=== PATIENT | male | born 1985 | race Hispanic/Latino ===

== ENCOUNTER 2023-12-06 07:58 | Day surgery (SDC) | payer MEDICARE, MEDICAID, SELFPAY ==
[2023-12-06] VITALS (13 sets, daily range): BP systolic 108–130; BP diastolic 72–95; PULSE 61–89; RESP 12–23; TEMP 36.1–36.4; O2SAT 99–100
--- NOTE | ~2023-12-06 | CT_ITS ---
EXAMINATION: CT abdomen pelvis w con DATE: 12/06/2023 11:03 INDICATION: Right lower quadrant abdominal pain TECHNIQUE: Computed tomography (CT) of the abdomen and pelvis was performed with 100 mL Omnipaque-350 intravenous contrast. Automated exposure control and iterative reconstruction technique were employe d. The dose-length product was 248.10 mGy-cm. COMPARISON: None FINDINGS: Lung bases are clear. Visualized inferior heart is normal. No pericardial or pleural effusion. Liver, gallbladder, spleen, pancreas, bilateral adrenal glands and left kidney are normal. 6 mm cyst at the lower pole of the right kidney. There is inflammatory stranding surrounding the distal appendix whic h is dilated to up to 9 mm consistent with acute appendicitis. Bowels are otherwise unremarkable with no obstruction. Bladder is normal. Minimal likely reactive free fluid in the deep pelvis. No abscess or free intraperitoneal gas. No pathologically enlarged abdominal or pelvic lymphadenopathy. Mild t horacolumbar levocurvature with minimal spondylosis. Left supra-acetabular bone island. IMPRESSION: 1. Acute appendicitis. Dr. López discussed these findings with Dr. Carbajal at 11:25 AM. Reviewed, dictated and finalized at location B.
--- NOTE | 2023-12-06 09:30 | ED.ABDPAIN ---
HPI - Abdominal Pain General Chief Complaint: Abdominal Pain <Jeni Carbajal PA-C - Last Filed: 12/06/23 18:14> Stated Complaint: rght flank pain <Jeni Carbajal PA-C - Last Filed: 12/06/23 18:14> Time Seen by Provider: 12/06/23 09:31 <Jeni Carbajal PA-C - Last Filed: 12/06/23 18:14> Focused HPI: This is a 38-year-old male that presents to the emergency department for right-sided abdominal pain. Reports ongoing intermittently over the last week. Reports history of kidney stones. Denies fevers, vomiting, dysuria, or hematuria. GENERAL: Well-appearing, well-nourished, and in no acute distress. HEAD: Normocephalic, atraumatic. CHEST: Clear to auscultation. ?No respiratory distress. HEART: Regular rate and rhythm.? NEURO: ?Alert and oriented x3. Patient screened in triage and initial orders placed.? ?Additional care and disposition to be based upon?diagnostic testing and treatment. <Jeni Carbajal PA-C - Last Filed: 12/06/23 18:14> Source: patient <Jeni Carbajal PA-C - Last Filed: 12/06/23 18:14> Mode of arrival: ambulatory <Jeni Carbajal PA-C - Last Filed: 12/06/23 18:14> Limitations: no limitations <Jeni Carbajal PA-C - Last Filed: 12/06/23 18:14> History of Present Illness HPI narrative: Breathe HPI. Symptoms began 2 weeks ago and lasted for 3 days then went away until last night. Pain is worse with physical movements. No nausea or vomiting. No diarrhea or constipation. No history of kidney stones. Denies urinary symptoms. Has not had anything to eat since yesterday afternoon. <Joao Lo MD - Last Filed: 12/06/23 13:04> Related Data Allergies/Adverse Reactions: Allergies Allergy/AdvReac Type Severity Reaction Status Date / Time Penicillins Allergy Hives Verified 12/06/23 08:04 <Jeni Carbajal PA-C - Last Filed: 12/06/23 18:14> Review of Systems Review of Systems: All systems reviewed & are unremarkable except as noted in HPI and below <Joao Lo MD - Last Filed: 12/06/23 13:04> Constitutional: Constitutional: Reports no additional constitutional complaints <Joao Lo MD - Last Filed: 12/06/23 13:04> ENT: Reports system reviewed and no additional complaints, except as documented <Joao Lo MD - Last Filed: 12/06/23 13:04> Cardiovascular: Cardiovascular: Reports no additional cardiovascular complaints <Joao Lo MD - Last Filed: 12/06/23 13:04> Respiratory: Respiratory: Reports no additional respiratory complaints <Joao Lo MD - Last Filed: 12/06/23 13:04> Gastrointestinal: Gastrointestinal: Reports abdominal pain, Denies constipation, Denies nausea and Denies vomiting <Joao Lo MD - Last Filed: 12/06/23 13:04> [facility] Past Medical History Medical History: Medical History Healthy adult male <Jeni Carbajal PA-C - Last Filed: 12/06/23 18:14> Surgical History Surgical History: Surgical History No history of previous surgery <Jeni Carbajal PA-C - Last Filed: 12/06/23 18:14> Exam Narrative: GENERAL: Well-appearing, well-nourished, and in no acute distress. HEAD: Normocephalic, atraumatic. ENT: Mucous membranes moist. NECK: Supple. CHEST: Clear to auscultation. No respiratory distress. HEART: Regular rate and rhythm. Normal peripheral pulses. ABDOMEN: Soft, tender palpation right lower quadrant with guarding, nondistended. EXTREMITIES: Normal range of motion. No edema. SKIN: Warm, dry, no rash. NEURO: Alert and oriented x3. PSYCH: Normal mood and affect. <Joao Lo MD - Last Filed: 12/06/23 13:04> Course Course Emergency Course: Informed of results. Discussed with Dr. Martinez, will go to OR. Ceftriaxone and flagyl for abx coverage. <Joao Lo MD - Last Filed: 12/06/23 13:04> Vital Signs Vital signs:
[2023-12-06 10:12] LABS: Basophils Percent Auto 0.4 % (0.2-1.2); Eosinophils Percent Auto 0.3 % (0-4.4); Hematocrit 42.5 % (42.0-52.0); Hemoglobin 13.7 g/dL (14.0-18.0); Immature Granulocyte Absolute 0.04 K/mm3 (0.00-0.031); Immature Granulocyte Percent A 0.4 % (0-0.5); Lymphocytes Absolute Auto 1.75 K/mm3 (0.9-3.2); Lymphocytes Percent Auto 17.7 % (18.3-44.2); Mean Corpuscular HGB Conc 32.2 g/dl (32-36); Mean Corpuscular Hemoglobin 27.1 pg (26-34); Mean Platelet Volume 11.8 fl (7.4-10.4); Monocytes Absolute Auto 0.4 K/mm3 (0.1-0.6); Monocytes Percent Auto 3.6 % (2.6-8.5); Neutrophils Absolute Auto 7.7 K/mm3 (1.3-6.7); Neutrophils Percent Auto 77.6 % (45.5-73.1); Platelet Count Result 247 k/mm3 (150-375); Red Blood Count 5.06 M/mm3 (4.6-6.20); Red Cell Distribution Width 14.2 % (11.5-14.5); White Blood Count 9.9 K/mm3 (4.5-10.0)
[2023-12-06 10:14] LABS: Add Urine Microscopic? NO; Appearance Urine Clear (Clear); Bilirubin Urine Negative (Negative); Blood Urine Negative (Negative); Color Urine Yellow (Yellow); Glucose Urine UA Negative (Negative); Ketones Urine Negative (Negative); Leukocyte Esterase Ur Negative LEU/UL (Negative); Nitrate Urine Negative (Negative); Protein Urine Negative (Negative); Specific Grav Ur 1.022 (1.001-1.035)
[2023-12-06 10:21] LABS: Alanine Aminotransferase 70 U/L (6-50); Albumin Level 4.9 g/dL (3.5-5.1); Alkaline Phosphatase 133 U/L (38-126); Anion Gap 12 mmol/L (4-12); Aspartate Amino Transferase 50 U/L (17-59); Bilirubin,Total 0.5 mg/dL (0.2-1.3); Blood Urea Nitrogen 14 mg/dL (9-20); Calcium 9.2 mg/dL (8.4-10.2); Carbon Dioxide 26 mmol/L (22-30); Chloride 101 mmol/L (98-107); Estimated CRCL calculation 93 ml/min; Estimated Glomerular Filt Rate > 60; Glucose 112 mg/dL (65-110); Lipase 97 U/L (23-300); Potassium 3.9 mmol/L (3.4-5.0); Sodium 139 mmol/L (137-145)
[2023-12-06] MEDS: MORPHINE SULFATE (*CRX) 4 MG/ML INJ IV PUSH (11:14)
[2023-12-06] MEDS: ONDANSETRON INJ 4 MG/2 ML VIAL IV PUSH (11:14)
[2023-12-06] MEDS: metroNIDAZOLE 500 MG/ISO 100ML 500 MG/100 ML BAG 100 MG IVPB (11:40)
[2023-12-06] MEDS: LACTATED RINGERS 1,000 ML 30 ML IV CONT ×3 (15:00→16:56)
--- NOTE | 2023-12-06 15:42 | WPDANESEPPF ---
Anes - Initial Pre Proc Eval Procedure: Operation Date: 12/06/23 17:00 Proposed Procedures p Laparoscopic Appendectomy, Possible Open - Kelechi Martinez MD Date/Time: 12/06/23 15:42 Surgeon: Kelechi Martinez MD Pre Op Diagnosis: rght flank pain Patient Data Age: 38 Gender: M Height: 1.7 m Weight: 69.05 kg Last Vital Signs Temp 36.1 C L 12/06/23 14:55 Pulse 61 12/06/23 14:55 Resp 18 12/06/23 14:55 BP 125/81 12/06/23 14:55 Pulse Ox 100 12/06/23 14:55 O2 Del Method Room Air 12/06/23 14:55 Allergies Allergy/AdvReac Type Severity Reaction Status Date / Time Penicillins Allergy Hives Verified 12/06/23 08:04 Laboratory Tests 12/06/23 10:06 WBC 9.9 K/mm3 (4.5-10.0) RBC 5.06 M/mm3 (4.6-6.20) Hgb 13.7 L g/dL (14.0-18.0) Hct 42.5 % (42.0-52.0) MCV 84.0 fl (80-100) MCH 27.1 pg (26-34) MCHC 32.2 g/dl (32-36) RDW 14.2 % (11.5-14.5) Plt Count 247 k/mm3 (150-375) MPV 11.8 H fl (7.4-10.4) Immature Gran % (Auto) 0.4 % (0-0.5) Neut % (Auto) 77.6 H % (45.5-73.1) Lymph % (Auto) 17.7 L % (18.3-44.2) [place] % (Auto) 3.6 % (2.6-8.5) Eos % (Auto) 0.3 % (0-4.4) Baso % (Auto) 0.4 % (0.2-1.2) Lymph # (Auto) 1.75 K/mm3 (0.9-3.2) [place] # (Auto) 0.4 K/mm3 (0.1-0.6) Eos # (Auto) 0.0 K/mm3 (0-0.3) Baso # (Auto) 0.0 K/mm3 (0.0-0.1) Abs Immat Gran (auto) 0.04 H K/mm3 (0.00-0.031) Absolute Neuts (auto) 7.7 H K/mm3 (1.3-6.7) Absolute Nucleated RBC 0.000 K/mm3 (0.0-0.012) Nucleated RBC % 0.0 % (0.0-0.2) Sodium 139 mmol/L (137-145) Potassium 3.9 mmol/L (3.4-5.0) Chloride 101 mmol/L (98-107) Carbon Dioxide 26 mmol/L (22-30) Anion Gap 12 mmol/L (4-12) BUN 14 mg/dL (9-20) Creatinine 0.90 mg/dL (0.7-1.3) Estim Creat Clear Calc 93 ml/min Estimated GFR > 60 (59 - ) Glucose 112 H mg/dL (65-110) Calcium 9.2 mg/dL (8.4-10.2) Total Bilirubin 0.5 mg/dL (0.2-1.3) AST 50 U/L (17-59) ALT 70 H U/L (6-50) Alkaline Phosphatase 133 H U/L (38-126) Total Protein 9.0 H g/dL (6.3-8.2) Albumin 4.9 g/dL (3.5-5.1) Lipase 97 U/L (23-300) Urine Color Yellow (Yellow) Urine Appearance Clear (Clear) Urine pH 6.0 (5.0-9.0) Ur Specific [place] 1.022 (1.001-1.035) Urine Protein Negative mg/dL (Negative) Urine Glucose (UA) Negative mg/dL (Negative) Urine Ketones Negative mg/dL (Negative) Ur Blood (Man) Negative (Negative) Urine Nitrate Negative (Negative) Urine Bilirubin Negative (Negative) Urine Urobilinogen 1.0 mg/dL (<2.0) Leukocyte Esterase Rfl Negative THOMAS/UL (Negative) Patient hx anesthesia problems: none Family hx anesthesia problems: none Results Review: All pre-operative results and documents have been reviewed as part of the pre-operative evaluation. [facility] Past Medical History Medical History (Updated 12/06/23 @ 13:04 by Joao Lo MD) Healthy adult male Surgical History Surgical History (Updated 12/06/23 @ 12:13 by Joao Lo MD) No history of previous surgery Anes - Eval Final PreProcedure Day of Procedure 12/06/23 15:42 Patient weight: normal Heart: regular rate and rhythm Lungs: clear to auscultation Airway: Mallampati scale class II Neurological: alert and oriented Last oral intake: >/= 8 hours ASA classification: II Emergent: yes Anesthetic plan: proceed Anesthesia type and monitoring: general ETT and standard monitoring Results Review: All pre-operative results and documents have been reviewed as part of the pre-operative evaluation. Informed Consent: The patient's anesthetic plan and its attendant risks and benefits were discussed with the patient/family/POA. Questions were solicited and answers provided to the satisfaction of the patient/family/POA.
--- NOTE | 2023-12-06 15:57 | WPDHPUPDATE1 ---
History and Physical Update Update Date/Time: 12/06/23 15:57 History and Physical has been reviewed, including an updated exam of the patient. There are NO changes in the patient's condition. Risks, benefits, and alternatives have been discussed and questions answered. Patient agrees to proceed with procedure.
--- NOTE | 2023-12-06 15:58 | PM.SD2 ---
Same Day Admit/Disch: HPI History of Present Illness Chief complaint: Acute appendicitis Narrative: Zaheer Post is a 38 year old male who has had some right flank pain for couple of weeks. In the last 3 days this pain has localized to the right lower quadrant and become much more severe. He came to the emergency room and was noted to have exquisite tenderness in the right lower quadrant. His white blood cell count was at the upper limit of normal at 9900. He had a CT scan of the abdomen and pelvis which showed a 9 mm appendix with periappendiceal stranding consistent with acute appendicitis. There was no evidence of an abscess or ruptured appendix. After discussion, the patient is taken to surgery now for laparoscopic appendectomy. [facility] Past Medical History Medical History Healthy adult male Surgical History Surgical History No history of previous surgery Same Day Admit/Disch: Med Pre-admit Medications Home Medications Medication Instructions Recorded Confirmed Type ibuprofen 600 mg tablet 600 mg PO Q6H PRN pain #14 tabs 12/06/23 Rx oxycodone-acetaminophen 5 mg-325 0.5 - 1 tablet PO Q6H PRN pain #10 12/06/23 Rx mg tablet tabs Review of Systems Review of Systems All systems reviewed & are unremarkable except as noted in HPI and below (HPI and those items noted below) Constitutional Constitutional: Denies chills and Denies fever(s) Cardiovascular Cardiovascular: Denies chest pain, Denies diaphoresis, Denies dyspnea and Denies paroxysmal nocturnal dyspnea Respiratory Respiratory: Denies chest congestion, Denies cough and Denies dyspnea Integumentary/Breasts Skin/Breast: Denies lesions and Denies rash Exam Const: General: comfortable, no acute distress, alert and awake HENMT: Head: normocephalic and atraumatic Mouth: Yes Normal oral and palatal mucosa present Eyes: Conjunctivae: conjunctivae normal Pupils: Equal, round and reactive pupils present EOM: EOMs intact bilaterally Neck: Neck: normal visual inspection, no lymphadenopathy and nontender Resp: Effort & Inspection: normal respiratory effort Auscultation: clear to auscultation bilaterally Cardio: Rate: regular rate Rhythm: regular rhythm Heart sounds: no gallops, no murmurs and no rubs GI: Inspection: non-distended, scaphoid and no scars GI Palp: Yes Soft to palpation, Yes Tenderness to palpation present (GI) (Right lower quadrant fullness with exquisite tenderness and some guarding), Yes Guarding due to palpation present (GI), No Hepatomegaly present and No Splenomegaly present Auscultation: normal bowel sounds Skin: Lesions: no lesions Rashes: no rashes Neuro: General: no focal motor deficits and CN's II-XI intact bilaterally Cranial nerves: Yes Equal, round and reactive pupils present, Yes Bilaterally intact EOM present, Yes facial symmetry and Yes Midline tongue present Speech: normal speech Motor exam (neuro): 5/5 motor strength present throughout and Motor abnormalities not present Extrem: General: no clubbing, cyanosis or edema and edema Psych: Affect: normal affect Thought process: Normal thought process present Insight: Good insight present (Psych) DS: Data Data Completed and Pending Labs on day of discharge: Labs from last 24 hours 12/06/23 10:06 WBC 9.9 RBC 5.06 Hgb 13.7 L Hct 42.5 MCV 84.0 MCH 27.1 MCHC 32.2 RDW 14.2 Plt Count 247 MPV 11.8 H Immature Gran % (Auto) 0.4 Neut % (Auto) 77.6 H Lymph % (Auto) 17.7 L [place] % (Auto) 3.6 Eos % (Auto) 0.3 Baso % (Auto) 0.4 Lymph # (Auto) 1.75 [place] # (Auto) 0.4 Eos # (Auto) 0.0 Baso # (Auto) 0.0 Abs Immat Gran (auto) 0.04 H Absolute Neuts (auto) 7.7 H Absolute Nucleated RBC 0.000 Nucleated RBC % 0.0 Sodium 139 Potassium 3.9 Chloride 101 Carbon Dioxide 26 Anion Gap 12 BUN 14 Creatinine 0.90 Estim Creat Clear Calc 93
[2023-12-06] MEDS: BUPIVACAINE/EPINEPHRINE 0.5% 50 ML VIAL 20 ML INFILTRATE (16:29)
[2023-12-06] MEDS: fentaNYL CITRATE INJ (*CRX) 100 MCG/2 ML VIAL 25 MCG IV PUSH ×6 (17:18→17:28)
--- NOTE | 2023-12-06 17:35 | P.OP_ITS ---
Procedure Note - Detailed Date of Procedure 12/06/23 Pre-op Diagnosis Acute appendicitis Post-op Diagnosis Same Procedure Performed Laparoscopic appendectomy Surgeon Kelechi Martinez MD Data Processing Control Clerk JOSE ANTONIO Young. Anesthesia General and Local Indications Patient came to the emergency room with history of right flank and lower quadrant abdominal pain. He had tenderness with guarding in this area. His white blood cell count was 9900. He had a CT scan which showed acute appendicitis. He is taken to surgery now for laparoscopic appendectomy. Findings Acute non perforated appendicitis Description of Procedure Patient was taken to surgery and induced into general anesthesia. The abdomen is prepped and draped. Trocars were placed in the usual fashion using Utan optical trocars and a 5 mm camera. Patient was placed in Trendelenburg with the right-side elevated. We found the appendix fairly easily. Appendix was exceptionally long and was adherent to the lateral abdominal sidewall. After some dissection we were able to divide the mesentery and mobilized the distal appendix. I then elevated the distal appendix and continued the dissection of the mesentery. The appendiceal artery was thoroughly cauterized and divided. The base of the appendix was skeletonized. A Vicryl endoloop was then used to ligate the base of the appendix. The appendix was amputated just above the ligature. The mucosa of the appendiceal stump was cauterized. The appendix was placed immediately in an Endo-Catch bag and retrieved through the 10 11 left lower quadrant trocar site. We replaced the trocar reviewed the areas of dissection as well as the appendiceal stump. All looked good with no evidence of bleeding or other problem. We then evacuated CO2 and removed the trocar sleeves. Skin wounds were closed with subcuticular 4-0 Monocryl skin suture. Wounds were dressed with Exofin surgical adhesive. Patient was awakened and taken to recovery in good condition. Sponge needle counts were correct x2. Estimated Blood Loss -5 Drains No Packing No Pathology Yes (Appendix) Complications None Condition Stable Disposition PACU [facility] Billing Surgery - Charge Forward: Surgery Billing (Laparoscopic appendectomy)
[2023-12-06] MEDS: oxyCODONE HCL (*CRX) 5 MG TAB IR PO (17:58)
== END 2023-12-06 18:28 | disposition home or self-care (01) ==
LOC: ANHED 12:49 → ANHSURGERY 12:53
PROVIDERS: Physician Assistant; Emergency Provider Emergency Medicine; Visit Provider Surgery
PROC: 0DTJ4ZZ Resection of Appendix, Percutaneous Endoscopic Approach (ICD-10-PCS; CPT 44970; principal; 2023-12-06 17:00)
DX: K35.30 Acute appendicitis with localized peritonitis, without perforation or gangrene (principal); K36 Other appendicitis
CPT/HCPCS: 44970; 36415; 74177; 80053; 81003; 83690; 85025; 88304; 96365; 96367; 96375; 99285; A9270; J0330; J0696; J1100; J1836; J2270; J2405; J2704; J3010; J7030; J7120; Q9967

== ENCOUNTER 2023-12-28 12:14 | Emergency (ER) | payer MEDICARE, MEDICAID, SELFPAY ==
--- NOTE | ~2023-12-28 | XR_ITS ---
Right Hand Technique: PA, oblique, and lateral views were obtained. Clinical History: Fourth digit pain Findings: No acute fracture or dislocation is seen. Osseous alignment is anatomic. Joint spaces are p reserved. Soft tissues are unremarkable. Impression: Unremarkable right hand. Reviewed, dictated and finalized at location . Impression: Unremarkable right hand.
[2023-12-28 12:18] VITALS: BP 129/91; PULSE 71; RESP 16; TEMP 36.4; O2SAT 100
[2023-12-28] MEDS: ACETAMINOPHEN 500 MG TABLET 1000 MG PO (13:16)
[2023-12-28] MEDS: TETANUS,DIPHTHERIA,AC PERTUSSIS ADULT (0.5 ML) BOOSTRIX IM (13:17)
--- NOTE | 2023-12-28 14:03 | ED.UPPEXIN ---
HPI - Extremity Injury (Upper) General Chief Complaint: Extremity Injury, Upper Stated Complaint: right ring finger caught in car door Time Seen by Provider: 12/28/23 12:45 Source: patient Mode of arrival: ambulatory Limitations: no limitations History of Present Illness HPI narrative: This is a 38-year-old male, with no significant past medical history, presents emergency department after slamming his right finger in a car door. He is not sure when he last had a tetanus vaccination. He complains of 5/10 distal finger pain. He has no other complaints at this time. Related Data Home Medications Medication Instructions Recorded Confirmed No Home Medications 12/17/23 12/17/23 Allergies Allergy/AdvReac Type Severity Reaction Status Date / Time Penicillins Allergy Hives Verified 12/28/23 12:17 Review of Systems Review of Systems: All systems reviewed & are unremarkable except as noted in HPI and below PMFSH Past Medical History Medical History Healthy adult male Surgical History Surgical History History of laparoscopic appendectomy 12/06/23 Dr. Martinez Social History Social History (Updated 12/17/23 @ 10:45 by Estephanie Arreaga CMA) Smoking status: Never smoker Alcohol intake: current Exam Narrative: GENERAL: Well-developed, well-nourished, and in no acute distress. HEAD: Normocephalic, atraumatic. EYES: PERRLA and EOMI. CHEST: Clear to auscultation. No respiratory distress. No wheezes rales or rhonchi HEART: Regular rate and rhythm. No murmur heard. Normal peripheral pulses. EXTREMITIES: The distal right 4th finger appears mildly erythematous and ecchymotic. There is a small area of some bone hematoma at the medial aspect of the nail with some bleeding. There is no noted laceration. Somewhat diminished range of motion at the distal phalanx with otherwise normal range of motion. No edema. SKIN: Warm, dry, no rash. NEURO: Alert and oriented x3. No focal deficit. Moving all 4 limbs spontaneously PSYCH: Normal mood and affect. Course Course Emergency Course: 14:03 - X-ray of the hand not concerning for fracture or dislocation. Exam is consistent with a subungual hematoma though has a means of bleeding. The patient was given a tetanus vaccination. Will discharge with splint for protection and recommendation for primary care follow-up. I discussed the findings and recommendations with the patient. Discussed return and emergency precautions including signs/symptoms of wound infection and neurovascular compromise. The patient voiced understanding and agreement with the plan. All questions answered to his satisfaction. Vital Signs Vital signs: Vital Signs Temperature 97.5 F L 12/28/23 12:18 Pulse Rate 71 12/28/23 12:18 Respiratory Rate 16 12/28/23 12:18 Blood Pressure 129/91 H 12/28/23 12:18 Pulse Oximetry 100 12/28/23 12:18 Oxygen Delivery Room Air 12/28/23 12:18 Temperature 97.5 F L 12/28/23 12:18 Pulse Rate 71 12/28/23 12:18 Respiratory Rate 16 12/28/23 12:18 Blood Pressure 129/91 H 12/28/23 12:18 Pulse Oximetry 100 12/28/23 12:18 Oxygen Delivery Room Air 12/28/23 12:18 MDM - Extremity Injury (Upper) MDM Narrative Medical decision making narrative: Plan: Imaging, pain control, tetanus vaccination, reassess Differential Diagnosis Differential diagnosis: Likely other (Tuft fracture, fracture, cervical hematoma, contusion, other) Discharge Plan Discharge Clinical Impression: Finger pain Qualifiers: Laterality: right Qualified Code(s): M79.644 - Pain in right finger(s) Subungual hematoma of finger of right hand Qualifiers: Encounter type: initial encounter Qualified Code(s): S60.10XA - Contusion of unspecified finger with damage to nail, initial encounter Patient Disposition: Home, Self-Care Condition: Stable Instruc
[2023-12-28 14:15] VITALS: BP 119/79; PULSE 65; RESP 14; TEMP 36.4; O2SAT 100
== END 2023-12-28 14:17 | disposition home or self-care (01) ==
PROVIDERS: Emergency Provider Preventive Medicine Aerospace Medicine; PCP Student in an Organized Health Care Education/Training Program
DX: S60.141A Contusion of right ring finger with damage to nail, initial encounter (principal); Z23 Encounter for immunization; W23.0XXA Caught, crushed, jammed, or pinched between moving objects, initial encounter
CPT/HCPCS: 73130; 90471; 90715; 99283; A9270

== ENCOUNTER 2024-11-19 11:22 | Outpatient (CLI) | payer MEDICARE, MEDICAID, SELFPAY ==
--- NOTE | ~2024-11-19 | US_ITS ---
US scrotum doppler INDICATION: Right testicular pain TECHNIQUE: Testicular sonogram utilizing grayscale and color Doppler FINDINGS: The testes are normal in size and appearance. No focal lesions are seen. The right testes measures 4.2 x 2.2 x 2.7 cm centimeters, and the left testis measures 4.7 x 2 x 2.7 cm cm. There is normal vascular flow to both testes. The right and left epididymides appear normal. There is no varicocele or hydrocele. IMPRESSION: 1. NORMAL TESTICULAR ULTRASOUND. Reviewed, dictated and finalized at location O.
== END 2024-11-19 11:23 | disposition home or self-care (01) ==
PROVIDERS: PCP Family Medicine; Visit Provider Family Medicine
DX: N50.811 Right testicular pain (principal)
CPT/HCPCS: 76870; 93976

== ENCOUNTER 2025-01-19 10:03 | Emergency (ER) | payer MEDICARE, MEDICAID, SELFPAY ==
--- OUTSIDE RECORDS SUMMARY | 2023-07-03 09:30 | XMS_ITS | Continuity of Care Document ---
Author Organization [facility] Address [address] [facility] [address] [place] [address] Phone Care Team Providers Care Service Writer Advisor Name Role Phone Kiara Fontana Unavailable Unavailable Allergies, Adverse Reactions, Alerts Substance Reaction Status Criticality Penicillins Active No Information WARNIN allergy(ies) could not be collected because the type is not supported. Please contact the source practice for further details. Medications Medication Instructions Dosage Effective Dates (start - stop) Status Comments paroxetine 20 mg tablet take 1 tablet by oral route every day 20 MG - Active hydroxyzine HCl 50 mg tablet take 1 tablet by oral route 2 times every day as needed for anxiety 50 MG - Active ibuprofen 200 mg tablet take 1 tablet by oral route every 6 hours as needed with food 200 MG - Active Bactrim DS 800 mg-160 mg tablet take 1 tablet by oral route every 12 hours 1.00 tablet - No Longer Active Procedures Procedure Date OFFICE VISIT/EST LEVEL III DIAST BP 80-89 MM HG SYST BP < 130 MM HG RVW MEDS BY RX/DR IN RD MED LIST DOCD IN RD TOBACCO NON-USER PHQ2 Negative Substance Abuse Screening AMNT PAIN NOTED PAIN PRSNT URINE CULTURE Offsite URINALYSIS/auto W/O micro (EXMPT) [facility] Meet& Greet May-03-202 3 HIV 1 ANTIGEN W/HIV 1&2 ANTIBODIES Offsi te Lab HEPATITIS C ANTIBODY Offsite Lab 2022 OFFICE VISIT/EST LEVEL IV OFFICE VISIT/EST LEVEL III Medication Reviewed PHQ2 Negative Substance Abuse Screening OFFICE VISIT/EST LEVEL III LDL-C 100-129 MG/DL Medication Reviewed TOBACCO NON-USER PHQ2 Negative Substance Abuse Screening URINE DIP Onsite NON AUTO W/0 MICRO EKG INTERPRET.&READING EKG,TRACING CBC W/DIFF. METABOLIC PANEL: CHEM 19 LIPID PANEL TSH Annual Well Visit PPPS Subsequent Visit OFFICE VISIT/EST LEVEL II Annual Well Visit PPPS Subsequent Visit Medication Reviewed IMMUNIZATION ADM/SNGL TDAP (7+ Yrs) (3) (C) OFFICE VISIT/EST LEVEL III CBC W/DIFF. METABOLIC PANEL: CHEM 19 TSH T-4 FREE Annual Well Visit PPPS Subsequent Visit CBC W/DIFF. METABOLIC PANEL: CHEM 19 LIPID PANEL T-4 FREE TSH VDRL HIV 1 ANTIGEN W/HIV 1&2 ANTIBODIES HEPATITIS PANEL:A,B,C Annual Well Visit PPPS Subsequent Visit OFFICE VISIT/EST LEVEL II OFFICE VISIT/EST LEVEL III OFFICE VISIT/EST LEVEL IV DRUG SCREEN/URINE (OFFSITE) OFFICE VISIT/EST LEVEL IV OFFICE VISIT/EST LEVEL IV OFFICE VISIT/EST LEVEL II OFFICE VISIT/EST LEVEL III CHLAMYDIA/DNA PROBE GGDNA HIV-1 ANTIBODY VDRL URINE DIP OFFICE VISIT/EST LEVEL IV Results Test Name Date and Time Measure Units Reference Range Abnormal Flag Status Comments Panel Description: Urine Culture, Routine Final Urine Culture, Routine 4 21:01:00 Final report Final Performed by:Tati Velez (RADHA) Result 1 4 21:01:00 No growth Final Performed by:Tati Velez (RADHA) Advance Directives Directive Yes / No Effective Date File Name No Information Encounters Encounter Description Practice Location Reason(s) For Visit Diagnoses Date Provider Providers Copied on Encounter OFFICE VISIT/EST LEVEL III [facility], [address] [facility] [address], [place], [place], [id number], tel:[phone] [facility] testicle pain (chief complaint) Right testicular painBody mass index (BMI) 22.0-22.9, adult Apr- 4 Amandeep Craig. [address] [facility] , [address], [place], [place], [id number], [place]. tel:[phone] Referring Provider: Kiara BRADY, [address] [place] [address] [address], [place], [address] . tel:[phone] [facility], [address] [facility] [address], [place], [place], [id number], [place] tel:[phone] [facility] Depression, unspecified depression type 3 Maureen Castle. [address] [facility] [address], [place], [place], [id number], [place]. tel:[phone] [facility], [address], [place], [place], [address], [place] tel:[phone] [facility] No Information 3 Heber Raymundo. [address] [facility] , [address], [place], [address], [place]. tel:[phone] [facility], [address] [facility] [address], [place], [place], [address], [place] tel:[phone] [facility] No Information Apr-2 3 Heebr Raymundo. [address] [facility] , [address], [place], [address], [place]. tel:[phone] [facility], [address] [facility] [address], [place], [place], [address], [place] tel:[phone] [facility] No Information Jun- 3 Heber Raymundo. [address] [facility] , [address], [place], [address], [place]. tel:[phone] OFFICE VISIT/EST LEVEL IV [facility], [address] [facility] [address], [place], [place], [id number], [place] tel:[phone] [facility] white tongue (chief complaint)f oul breath (chief complaint) Dietary counseling and surveillanceH alitosisSense of smell alteredPost-C OVID syndromeEncou nter for screening for other viral diseasesObses sive behaviorBody mass index (BMI) 23.0-23.9, adult Jun- 3 Heber Raymundo. [address] [facility] , [address], [place], [address], [place]. tel:[phone] OFFICE VISIT/EST LEVEL III [facility], [address] [facility] [address], [place], [place], [address], [place] tel:[phone] [facility] white tongue (chief complaint) Dietary counseling and surveillanceO ral leukoplakiaBo dy mass index (BMI) 26.0-26.9, adult 3 Tiana Virgen. [address] [facility] [address], [place], [place], [address], [place]. tel:[phone] OFFICE VISIT/EST LEVEL III [facility], [address] [facility] [address], [place], [place], [address], [place] tel:[phone] [facility] right side pain 2 weeks (chief complaint) Dietary counseling and surveillanceR ight sided abdominal painBody mass index (BMI) 25.0-25.9, adultSpinal stenosis, lumbar region without neurogenic gina 1 Amandeep Craig. [address] [facility] , [address], [place], [place], [address], . tel:[phone] Referring Provider: Kiara BRADY, [address] [facility] [address], [place], [address] . tel:[phone] OFFICE VISIT/EST LEVEL II [facility], [address] [facility] [address], [place], [place], [address], [place] tel:[phone] [facility] Medicare preventive (chief complaint)F ollow Up of back pain (chief complaint)c hest pain (chief complaint)d izziness (chief complaint) Encntr for general adult medical exam w/o abnormal findingsDieta ry counseling and surveillanceC hest pain, unspecified typeOrthostas isSpinal stenosis of lumbar region without neurogenic claudication 0 Heber Raymundo. [address] [facility] , [address], [place], [address], [place]. tel:[phone] Referring Provider: Zackary Buck MD, [address] [place] [address] [address], [place], [address]. tel:[phone] [facility], [address] [facility] [address], [place], [address], [place] tel:[phone] [facility] Medicare preventive (chief complaint)F ollow Up of back pain (chief complaint)F ollow Up of allergies (chief complaint) Dietary counseling and surveillanceM edicare annual wellness visit, subsequentSpi nal stenosis, lumbar region without neurogenic claudicationB ida mass index (BMI) 26.0-26.9, adult 9 Heber Raymundo. [address] [facility] , [address], [place], [address], [place]. tel:[phone] OFFICE VISIT/EST LEVEL III [facility], [address] [facility] [address], [place], [place], [address], [place] tel:[phone] [facility] other (chief complaint)F ollow Up of asthma (chief complaint) Dermatofibrom aAllergic rhinitis, unspecified allergic rhinitis trigger, unspecified rhinitis seasonality 6 Heber Raymundo. [address] [facility] [address] [facility] [address], [address], [place], [place], [facility], [place]. tel:[phone] [facility], [address] [facility] [address], [place], [place], [address], tel:[phone] [facility] physical (chief complaint)o ther (chief complaint) No Information 5 Nikhil Higgins. [address], [address], [place], [facility], [place]. tel:[phone] [facility], [address] [facility] [address], [place], [place], [address], tel:[phone] [facility] tongue numbness (chief complaint) No Information 3 Marvel Wright. [address] [facility] [address], [address], [place], [facility], [place]. tel:[phone] OFFICE VISIT/EST LEVEL II [facility], [address] [facility] [address], [place], [place], [address], [place] tel:[phone] [facility] Skin lesion (chief complaint) No Information 3 No Information OFFICE VISIT/EST LEVEL III [facility], [address] [facility] [address], [place], [place], [address], [place] tel:[phone] [facility] back pain (chief complaint) No Information 2 No Information OFFICE VISIT/EST LEVEL IV [facility], [address] [facility] [address], [place], [place], [address], [place] tel:[phone] [facility] check up (chief complaint)a sthma (chief complaint)b ack pain (chief complaint) No Information 1 Heber Raymundo. [address] [facility] [address] [facility] [address], [address], [place], [facility], [place]. tel:[phone] OFFICE VISIT/EST LEVEL IV [facility], [address] [facility] [address], [place], [place], [address], tel:[phone] [facility] back pain (chief complaint)a sthma (chief complaint) No Information Nov-0 0 Heber Raymundo. [address] [facility] [address] [facility] [address], [address], [place], [address], [place]. tel:[phone] [facility], [address], [place], [place], [address], tel:[phone] [facility] No Information 0 No Information OFFICE VISIT/EST LEVEL IV [facility], [address], [place], [place], [address], tel:[phone] [facility] No Information 0 No Information OFFICE VISIT/EST LEVEL II [facility], [address] [facility] [address], [place], [place], [address], tel:[phone] [facility] No Information Jun-1 5-200 9 No Information OFFICE VISIT/EST LEVEL III [facility], [address] [facility] [address], [place], [place], [address], tel:[phone] [facility] No Information Apr-0 8-200 9 No Information [facility], [address] [place] [address] [address], [place], [place], [address], tel:[phone] [facility] No Information Apr-0 8-200 9 No Information OFFICE VISIT/EST LEVEL IV [facility], [address] [facility] [address], [place], [place], [address], tel:[phone] [facility] No Information Feb-0 5-200 9 No Information Family History Family Member Type Diagnosis Age At Onset Sister Problem (finding) asthma Mother Problem (finding) raised blood lipids Mother Problem (finding) coronary arterioscleros is Mother Problem (finding) hypertension Sister Problem (finding) migraine Father Problem (finding) Alive and well Mother Problem (finding) raised blood lipids Sister Problem (finding) Allergies Mother Problem (finding) hypertension Mother Problem (finding) Alive and well Immunizations Vaccine Date Status Comments Tdap (Adacel) administered Note: vis ; So urce: New Immunization Record Payers Payer name Insurance type Covered republican ID Authorsheila zavaleta(s) [facility] Medicare Dual PPS CI [id number] [employer]IC[employer] PRIMARY [id number] 99 Care [facility] NGS PPS MB [id number] [employer] MEDICARE PRIMARY [id number] Social History Type Description Quantity Date Captured Comments Alcohol Use Details No Caffeine Use Details No Tobacco Use Status Never smoked tobacco 2023 Smoking Status Never smoker Non-Smoking Tobacco Use Details : No Details Available : No Details Available Sex Male Sexual Orientation Straight or heterosexual Gender Identity Male Vital Signs Date / Time: Height Weight BMI Pulse Rate Blood Pressure Temperature Respiratory Rate Body Surface Area Head Circumference Head Circ. Percentile Wt./Jose. Percentile BMI percentile Pulse Ox Inhaled Ox 2:38 PM 67.00 in 66.043 kg (145.60 lbs) 22.8 0 kg/m eter (2) 72 /min 126/84 mm[Hg] 98.10 F 18 /min 1.77 meter(2) 98 % Chief Complaint And Reason For Visit From encounter dated '07/03/2023 14:30'. testicle pain (chief complaint) Reason For Referral Reason For Referral No Information Plan Of Treatment Date Type Action Status Goal HCV due Goal Annual Wellness Exam. Due on due Goal Colonoscopy. Due on 024 due Goal Lipid panel. Due on 027 due Goal HIV Screen due Goal Tdap. Due on due Goal H&P. Due on due Goal Pain Screening. Due on due Goal HIV Screen due Goal H&P. Due on due Goal HCV due Goal Colonoscopy. Due on due Goal Tdap. Due on due Goal Lipid panel. Due on due Goal Colonoscopy. Due on due Goal Lipid panel. Due on due Goal Tdap. Due on due Goal HIV Screen due Goal HCV due Goal H&P. Due on due Goal H&P. Due on due Goal Colonoscopy. Due on due Goal Lipid panel. Due on due Goal HIV Screen due Goal Tdap. Due on due Goal Lifestyle education regardin g diet completed Goal Lipid panel. Due on due Goal H&P. Due on due Goal HCV. Due on due Goal HIV Screen due Goal Colonoscopy. Due on due Goal Tdap. Due on due Goal Lifestyle education regardin g diet completed Goal Tdap. Due on due Goal Influenza vaccine. Due on due Goal Lipid panel. Due on due Goal HIV Screen. Due on due Goal Lifestyle education regardin g diet completed Goal HIV Screen. Due on 20 due Goal Lipid panel. Due on 018 due Goal Tdap. Due on due Goal Influenza vaccine. Due on due Goal Dietary management education , guidance, and counseling completed Goal HIV Screen. Due on 19 due Goal Tdap. Due on due Goal Influenza vaccine. Due on due Goal Dietary management education , guidance, and counseling completed Referral Referred To: Popeye Andrade [address] [facility] [address] [place], [phone] Ordered: Referrals: Popeye Andrade. Evaluate and treat ordered History Of Present Illness Encounter Date Complaint History Of Prese nt Illness Comments: Pt wit h pain to right testicle for the last week or so. Feels like it may be improving with time. Denies any swelling or redness. No dysuria or penile discharge. Denies any injury. Pt with recent kidney stone. Denies any abdominal pain. testicle pain foul breath white tongue noted 3 months a go. Was scraping. Not changed. Seen in March. Given antifungal mouth rinse. Not changed.Feels has bad breath, but family members say is normalHe stopped eating due to feeling bad about his breath. Lost weight.Seen dentist. Did cleaning. Told him nothing is wrong.He had COVID in 2021. Did lose smell initiallyAlso has history of being obsessed with other sensation in past. This is worst he ever had. Read online that if you lick yourself, smell will get better. So now he licks his arm constantlyFeels significant emotional distress since this started white tongue 2 months back no ticed that the tongue is white and it also smells. no pain . no lymphadenopathy. otherwise well. has tried scrapping tongue and tried Listerine, but no help right side pain 2 we eks (comments) C/o right flank pain for the last 2 weeks. Area is tender. Has tried to pass gas without any relief. Worse with movement. Bracing area seems to help. Addi surgeries on abdomen. Last BM 1 hr [employer]. Denies trouble urinating. right side pain 2 weeks chest pain The patient pres ents with a complaint of chest pain. The symptoms began 2 years ago. The problem occurs intermittently. It generally lasts 5 seconds. The pain is in the left ribs. The patient describes the pain as sharp. The patient denies dyspnea, fatigue, nausea, palpitations and vomiting. Relevant history for this patient excludes tobacco use. The symptoms are aggravated by motion. The patient had a response to rest. The patient denies any abdominal pain, headache or weight gain. Additional information: seeming to come more frequently. Follow Up of back pain Location of pain is lower back. The patient describes the pain as an ache and sharp. Additional information: been having more bad days recently. Is taking ibuprofen as needed. Tries to self cope. Medicare preventive Cognitive St atus: Normal cognition (Cognitive status has not changed) on 12/11/2019. The ''Up and Go'' test took less than 30 seconds and the patient does not need help with activities of daily living. The patient is not at risk for falls. The patient has not fallen in the last year. The fall(s) did not result in injury. Patient's activity level is sedentary. The patient has smoke detectors in the home. Patient reports using a seatbelt in vehicles. Patient reports a none diet. Patient denies recent weight gain. Patient denies recent weight loss. Relevant history is negative for tobacco use and alcohol use. dizziness It occurs interm ittently. The patient describes it as (an) light-headed. Symptom is aggravated by rapid movement and rapid rise. Relieving factors include rest. Associated symptoms include chest pain. Pertinent negatives include fever, headache, nausea, otalgia, palpitations and vomiting. Additional information: noted times. Will have him get fluids and lie down. Medicare preventive The patient has not felt depressed and has had interest and pleasure doing things recently. Cognitive Status: Normal cognition on 10/21/2018. The ''Up and Go'' test took less than 30 seconds and the patient does not need help with activities of daily living. The patient is at risk for falls. The patient has not fallen in the last year. The fall(s) did not result in injury. Patient's activity level is sedentary. The patient has smoke detectors in the home. Patient reports using a seatbelt in vehicles. spinal stenosis Patient reports a none diet. Patient denies recent weight gain. Patient denies recent weight loss. Relevant history is negative for tobacco use, alcohol use. Follow Up of allergies The patie nt denies cough, ear pain, headache, nasal drainage and nausea. Additional information: takes OTC. Not have issues with asthma now. Follow Up of back pain Location of pain is lower back.The patient describes the pain as an ache. Pertinent negatives include abdominal pain, diarrhea, numbness, weakness and weight loss. Additional information: stopped going to pain management. Does ibuprofen OTC. Follow Up of asthma The initial visit date was 12/02/2009. Associated symptoms include dry cough. Pertinent negatives include wheezing. Additional information: been out of medications. Not come to doctor. Off meds. Rare wheezing. Does cough every day. Minimal head symptoms. other The symptoms beg an 2 months ago. pt states he has a lump on right thigh. states that it has gotten bigger. Does not hurt but is hard and sometimes the skin around it itches. No redness. Feels dry physical Needs a physical form filled out for foster parenting other [id number]-[id number] bm/week-normal for himhemorrhoid-sometimes painful, always itchy bm-lump at anus a couple weeks ago-gone nowasthma-chronic dry cough-using albuterol 2x/day with little help, no other asthma medsback fopr-pucscbs-quer refill for percocet for bad days-rare use Functional Status Date Functional Assessmen t Pain Score 2/10 Instructions Date Instruction Additional Infor osman ? epididymitis. Low suspicion for torsion. Will treat with bactrim. 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 miralax. f/u if no improvement. Related to Right sided abdominal pain Lifestyle education regarding di et Related to Dietary counseling and surveillance Giving encouragement to exercise Related to Dietary counseling and surveillance Pain is worsening, b ut not noticing increased neurologic changes. Discussed options. He does not want addicting medication. Discussed options of doing CBD or medical marijuana. Encourage to do his stretching Related to Spinal stenosis of lumbar region without neurogenic claudication normal ECG. Likely i s muscular from his spinal stenosis. Watch for now Related to Chest pain, unspecified type Check labs. Increase fluids Rela rodney to Orthostasis maintain healthy diet and exerci se Related to Encntr for general adult medical exam w/o abnormal findings Dietary management e ducation, guidance, and counseling Related to Dietary counseling and surveillance Giving encouragement to exercise Related to Dietary counseling and surveillance paperwork filled out , no concerns being in household of fostering child Related to Medicare annual wellness visit, subsequent Giving encouragement to exercise Related to Dietary counseling and surveillance Dietary management e ducation, guidance, and counseling Related to Dietary counseling and surveillance maintain healthy diet and exerci se Related to Medicare annual wellness visit, subsequent discussed is benign finding. Nothing needs to be done. Watch for now. Consider excision if increases in size or discomfort Related to Dermatofibroma Singulair refilled. No signs of asthma, can stop inhalers Related to Allergic rhinitis, unspecified allergic rhinitis trigger, unspecified rhinitis seasonality percocetoarrs checked-no activit y Related to Back pain colace Related to Const ipation symbicortsingulair Related to As thma labs today x lipid-n ot covered by medicare Related to Routine general medical examination at a health care facility use albuterol as nee ded with a target of less than 2 times a week Related to Asthma observation of lymph node x 1 mo nth Related to Enlarged lymph node call if lymph node e nlarges, becomes tender, or other assoc. symptoms Related to Enlarged lymph node call for any concerns or problem s Related to Enlarged lymph node call for increase in size of lipoma, pain, or other problems Related to Abdominal lipoma call if increases in size or becomes painful Related to Ganglion cyst Assessments Type Assessment Date assessment Right testicular pain assessment Body mass index (BMI) 22.0-22.9, adult Mental Status Date Cognitive Assessment Orientation - [place] ed to time, place, person, situation. Patient Care Teams Name Effective Dates (start - stop) Status Members No Information
--- OUTSIDE RECORDS SUMMARY | 2023-07-03 09:30 | XMS_ITS | Continuity of Care Document ---
Author Organization [facility] Address [address] [facility] [address] [place] [address] Phone Care Team Providers Care Taker Off Drying Kiln Name Role Phone Kiara Fontana Unavailable Unavailable [...] Copied on Encounter OFFICE VISIT/EST LEVEL III [facility], [address] [facility] [address], [place], [place], [id number], tel:[phone] [facility] testicle pain (chief complaint) Right testicular painBody mass index (BMI) 22.0-22.9, adult Apr- 4 Amandeep Craig. [address] [facility] , [address], [place], [place], [id number], [place]. tel:[phone] Referring Provider: Kiara BRADY, [address] [place] [address] [address], [place], [address] . tel:[phone] [facility], [address] [facility] [address], [place], [place], [id number], [place] tel:[phone] [facility] Depression, unspecified depression type [address] [facility] [address], [place], [place], [id number], [place]. tel:[phone] [facility], [address], [place], [place], [address], [place] tel:[phone] [facility] No Information 3 Hbeer Raymundo. [address] [facility] , [address], [place], [address], [place]. tel:[phone] [facility], [address] [facility] [address], [place], [place], [address], [place] tel:[phone] [facility] No Information Apr-2 3 Heber Raymundo. [address] [facility] , [address], [place], [address], [place]. tel:[phone] [facility], [address] [facility] [address], [place], [place], [id number], [place] tel:[phone] [facility] No Information Jun- 3 Heber Raymundo. [address] [facility] , [address], [place], [address], [place]. tel:[phone] OFFICE VISIT/EST LEVEL IV [facility], [address] [facility] [address], [place], [place], [id number], [place] tel:[phone] [facility] white tongue (chief complaint)f oul breath (chief complaint) Dietary counseling and surveillanceH alitosisSense of smell alteredPost-C OVID syndromeEncou nter for screening for other viral diseasesObses sive behaviorBody mass index (BMI) 23.0-23.9, adult Jun- 3 Heber Raymundo. [address] [facility] , [address], [place], [address], [place]. tel:[phone] OFFICE VISIT/EST LEVEL III [facility], [address] [facility] [address], [place], [place], [address], [place] tel:[phone] [facility] white tongue (chief complaint) Dietary counseling and surveillanceO ral leukoplakiaBo dy mass index (BMI) 26.0-26.9, adult 3 Tiana Virgen. [address] [facility] [address], [place], [place], [id number], [place]. tel:[phone] OFFICE VISIT/EST LEVEL III [facility], [address] [facility] [address], [place], [place], [address], [place] tel:[phone] [facility] right side pain 2 weeks (chief complaint) Dietary counseling and surveillanceR ight sided abdominal painBody mass index (BMI) 25.0-25.9, adultSpinal stenosis, lumbar region without neurogenic gina 1 Amandeep Craig. [address] [facility] , [address], [place], [place], [address], . tel:[phone] Referring Provider: Kiara BRADY, [address] [facility] [address], [place], [address] . tel:[phone] OFFICE VISIT/EST LEVEL II [facility], [address] [facility] [address], [place], [place], [address], [place] tel:[phone] [facility] Medicare preventive (chief complaint)F ollow Up of back pain (chief complaint)c hest pain (chief complaint)d izziness (chief complaint) Encntr for general adult medical exam w/o abnormal findingsDieta ry counseling and surveillanceC hest pain, unspecified typeOrthostas isSpinal stenosis of lumbar region without neurogenic claudication 0 Heber Raymundo. [address] [facility] , [address], [place], [address], [place]. tel:[phone] Referring Provider: Zackary Buck MD, [address] [place] [address] [address], [place], [address]. tel:[phone] [facility], [address] [facility] [address], [place], [address], [place] tel:[phone] [facility] Medicare preventive (chief complaint)F ollow Up of back pain (chief complaint)F ollow Up of allergies (chief complaint) Dietary counseling and surveillanceM edicare annual wellness visit, subsequentSpi nal stenosis, lumbar region without neurogenic claudicationB ida mass index (BMI) 26.0-26.9, adult 9 Heber Raymundo. [address] [facility] , [address], [place], [address], [place]. tel:[phone] OFFICE VISIT/EST LEVEL III [facility], [address] [facility] [address], [place], [place], [address], [place] tel:[phone] [facility] other (chief complaint)F ollow Up of asthma (chief complaint) Dermatofibrom aAllergic rhinitis, unspecified allergic rhinitis trigger, unspecified rhinitis seasonality 6 Heber Raymundo. [address] [facility] [address], [address], [place], [place], [facility], [place]. tel:[phone] [facility], [address] [facility] [address], [place], [place], [address], tel:[phone] [facility] physical (chief complaint)o ther (chief complaint) No Information 5 Nikhil Higgins. [address] [facility] [address], [address], [place], [place], [facility], [place]. tel:[phone] [facility], [address] [facility] [address], [place], [place], [address], tel:[phone] [facility] tongue numbness (chief complaint) No Information 3 Marvel Wright. [address] [facility] [address], [address], [place], [facility], [place]. tel:[phone] OFFICE VISIT/EST LEVEL II [facility], [address] [facility] [address], [place], [place], [address], [place] tel:[phone] [facility] Skin lesion (chief complaint) No Information 3 No Information OFFICE VISIT/EST LEVEL III [facility], [address] [facility] [address], [place], [place], [address], [place] tel:[phone] [facility] back pain (chief complaint) No Information 2 No Information OFFICE VISIT/EST LEVEL IV [facility], [address] [facility] [address], [place], [place], [address], [place] tel:[phone] [facility] check up (chief complaint)a sthma (chief complaint)b ack pain (chief complaint) No Information 1 Heber Raymundo. [address] [facility] [address], [address], [place], [facility], [place]. tel:[phone] OFFICE VISIT/EST LEVEL IV [facility], [address] [facility] [address], [place], [place], [address], tel:[phone] [facility] back pain (chief complaint)a sthma (chief complaint) No Information Nov-0 0 Heber Raymundo. [address] [facility] [address], [address], [place], [address], [place]. tel:[phone] [facility], [address], [place], [place], [address], tel:[phone] [facility] No Information 0 No Information OFFICE VISIT/EST LEVEL IV [facility], [address], [place], [place], [address], tel:[phone] [facility] No Information 0 No Information OFFICE VISIT/EST LEVEL II [facility], [address] [facility] [address], [place], [place], [address], tel:[phone] [facility] No Information Jun-1 5-200 9 No Information OFFICE VISIT/EST LEVEL III [facility], [address] [facility] [address], [place], [place], [address], tel:[phone] [facility] No Information Apr-0 8-200 9 No Information [facility], [address] [place] [address] [address], [place], [place], [address], tel:[phone] [facility] No Information Apr-0 8-200 9 No Information OFFICE VISIT/EST LEVEL IV [facility], [address] [facility] [address], [place], [place], [address], tel:[phone] [facility] No Information Feb-0 5-200 9 No Information Family History Family Member Type Diagnosis Age At Onset Sister Problem (finding) asthma Mother Problem (finding) raised blood lipids Sister Problem (finding) migraine Sister Problem (finding) Allergies Mother Problem (finding) hypertension Mother Problem (finding) coronary arterioscleros is Mother Problem (finding) hypertension Father Problem (finding) Alive and well Mother Problem (finding) raised blood lipids Mother Problem (finding) Alive and well Immunizations Vaccine Date Status Comments Tdap (Adacel) administered Note: vis ; So urce: New Immunization Record Payers Payer name Insurance type Covered green party ID Authorsheila zavaleta(s) [facility] Medicare Dual PPS CI [id number] [employer]IC[employer] PRIMARY [id number] 99 Care [facility] NGS PPS MB [id number] [employer] MEDIC[employer] PRIMARY [id number] Social History Type Description Quantity Date [...] counseling completed Referral Referred To: Popeye Andrade [address] [facility] [address] [place], [phone] Ordered: Referrals: Popeye Andrade. Evaluate and treat [...] stone. Denies any abdominal pain. testicle pain white tongue noted 3 months a go. [...] constantlyFeels significant emotional distress since this started foul breath white tongue 2 months back no ticed that the tongue is white and it also smells. no pain . no lymphadenopathy. otherwise well. has tried scrapping tongue and tried Listerine, but no help right side pain 2 weeks right side pain 2 we eks (comments) C/o right flank pain for the last 2 weeks. Area is tender. Has tried to pass gas without any relief. Worse with movement. Bracing area seems to help. Addi surgeries on abdomen. 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 Denies trouble urinating. Follow Up of back pain Location of [...] have him get fluids and lie down. chest pain The patient pres ents with [...] Additional information: seeming to come more frequently. Medicare preventive The patient has not felt [...] going to pain management. Does ibuprofen OTC. other The symptoms beg an 2 months ago. pt states he has a lump on right thigh. states that it has gotten bigger. Does not hurt but is hard and sometimes the skin around it itches. No redness. Feels dry Follow Up of asthma The initial visit date was 12/02/2009. Associated symptoms include dry cough. Pertinent negatives include wheezing. Additional information: been out of medications. Not come to doctor. Off meds. Rare wheezing. Does cough every day. Minimal head symptoms. other [id number] bm/week-normal for himhemorrhoid-sometimes painful, always itchy bm-lump at anus a couple weeks ago-gone nowasthma-chronic dry cough-using albuterol 2x/day with little help, no other asthma medsback [id number] refill for percocet for bad days-rare use physical Needs a physical form filled out for foster parenting Functional Status Date Functional Assessmen t Pain [...] improvement. Related to Right sided abdominal pain Giving encouragement to exercise Related to Dietary counseling and surveillance Lifestyle education regarding di et Related to Dietary counseling and surveillance Pain [...] Related to Medicare annual wellness visit, subsequent Singulair refilled. No signs of asthma, can stop inhalers Related to Allergic rhinitis, unspecified allergic rhinitis trigger, unspecified rhinitis seasonality discussed is benign finding. Nothing needs to be done. Watch for now. Consider excision if increases in size or discomfort Related to Dermatofibroma percocetoarrs checked-no activit y Related to Back pain symbicortsingulair Related to As thma labs today x lipid-n ot covered by medicare Related to Routine general medical examination at a health care facility colace Related to Const ipation use albuterol as nee ded with a [...] Mental Status Date Cognitive Assessment Orientation - [place] ed to time, place, person, situation. Patient Care Teams Name Effective Dates (start - stop) Status Members No Information
[2025-01-19] VITALS (7 sets, daily range): BP systolic 118–120; BP diastolic 72–82; PULSE 79–85; RESP 16; TEMP 36.6–36.7; O2SAT 98–100
--- NOTE | ~2025-01-19 | CT_ITS ---
EXAMINATION: CT abdomen pelvis w con DATE: 01/19/2025 11:19 INDICATION: Right lower quadrant abdominal pain. TECHNIQUE: Computed tomography (CT) of the abdomen and pelvis was performed with 100 mL Omnipaque 350 intravenous contrast. Automated exposure control and iterative reconstruction technique were employed. The dose-length product was 257.05 mGy-cm. COMPARISON: CT abdomen and pelvis 12/06/2023 FINDINGS: The visualized portions of the lung bases are clear without pneumonia or pleural effusion. The heart size is normal. No pericardial effusion. The liver, gallbladder, spleen, pancreas, adrenal glands, and left kidney are normal. There is a 5 mm cyst in right kidney. The bladder is distended. There are changes of appendectomy. There are no pathologically enlarged lymph nodes. There is no free intraperitoneal fluid. There are chronic bilateral L5 pars defects. There is 3 mm anterolisthesis of L5 on S1. There is mild thoracic and lumbar spondylosis. IMPRESSION: 1. No etiology for the patient's symptoms. Reviewed, dictated and finalized at location E.
[2025-01-19 10:36] LABS: Hematocrit 45.9 % (42.0-52.0); Hemoglobin 14.7 g/dL (14.0-18.0); Immature Granulocyte Percent A 0.4 % (0-0.5); Lymphocytes Absolute Auto 1.31 K/mm3 (0.9-3.2); Mean Corpuscular HGB Conc 32.0 g/dl (32-36); Mean Corpuscular Hemoglobin 26.9 pg (26-34); Mean Corpuscular Volume 84.1 fl (80-100); Nucleated Red Blood Cells Absolute Auto 0.000 K/mm3 (0.0-0.012); Nucleated Red Blood Cells Perc 0.0 % (0.0-0.2); Platelet Count Result 244 k/mm3 (150-375); Red Blood Count 5.46 M/mm3 (4.6-6.20); White Blood Count 4.7 K/mm3 (4.5-10.0)
[2025-01-19 10:43] LABS: Add Urine Microscopic? NO; Appearance Urine Clear (Clear); Glucose Urine UA Negative (Negative); Leukocyte Esterase Ur Negative LEU/UL (Negative); Nitrate Urine Negative (Negative); Specific Grav Ur 1.003 (1.001-1.035)
[2025-01-19 10:50] LABS: Alanine Aminotransferase 59 U/L (6-50); Albumin Level 5.3 g/dL (3.5-5.1); Alkaline Phosphatase 127 U/L (38-126); Anion Gap 13 mmol/L (4-12); Aspartate Amino Transferase 46 U/L (17-59); Bilirubin,Total 0.6 mg/dL (0.2-1.3); Blood Urea Nitrogen 12 mg/dL (9-20); Calcium 9.6 mg/dL (8.4-10.2); Carbon Dioxide 25 mmol/L (22-30); Chloride 102 mmol/L (98-107); Estimated CRCL calculation 93 ml/min; Estimated Glomerular Filt Rate > 60; Glucose 111 mg/dL (65-110); Lipase 128 U/L (23-300); Potassium 4.1 mmol/L (3.4-5.0); Sodium 140 mmol/L (137-145); Total Protein 9.2 g/dL (6.3-8.2)
[2025-01-19] MEDS: SODIUM CHLORIDE 0.9% IV 500 ML 999 ML IV CONT (10:50)
[2025-01-19] MEDS: ONDANSETRON INJ 4 MG/2 ML VIAL IV PUSH (10:50)
--- NOTE | 2025-01-19 10:50 | ED_ITS ---
HPI - Abdominal Pain General Chief Complaint: Abdominal Pain Stated Complaint: right lower abd pain Time Seen by Provider: 01/19/25 10:09 Source: patient Mode of arrival: ambulatory Limitations: no limitations History of Present Illness HPI narrative: This is a very pleasant 39-year-old male patient with no known past medical history that is currently treated with medications, and who has history of prior appendectomy who presents to the emergency room independently ambulatory accompanied by his mother with complaints of having right lower quadrant pain that was present upon awakening this morning. Patient endorses that upon wakening he had a sharp pain in the right lower quadrant that did not radiate and was not associated with any nausea/vomiting/urinary symptoms of burning, urgency, frequency or hematuria. He has not been able to identify anything that makes the pain worse or better. His initial intensity was an 8 it is now out of 3. Patient has no other acute complaints of chest pain/dyspnea or any acute injuries. He did have 1 episode of diarrhea this morning. No melanotic appearing stool or hematochezia. Related Data Allergies Allergy/AdvReac Type Severity Reaction Status Date / Time Penicillins Allergy Hives Verified 01/19/25 10:13 Review of Systems 2 Review of Systems: All systems reviewed & are unremarkable except as noted in HPI and below PMFSH Past Medical History Medical History Healthy adult male Surgical History Surgical History History of laparoscopic appendectomy 12/06/23 Dr. Martinez Social History Social History Smoking status: Never smoker Alcohol intake: current Exam 2 Const: General: healthy appearing, no acute distress and alert Nutritional Appearance: well nourished Orientation/consciousness: patient oriented x3 Limitations: no limitations HENMT: Head: normal to inspection Face/Nose/Sinus: Normal external nose present and Normal nares present Mouth: Yes Normal oral and palatal mucosa present Throat: posterior oropharynx normal Eyes: Conjunctivae: conjunctivae normal Neck: Neck: normal visual inspection, no lymphadenopathy and no meningeal signs Other: No JVD Chest: Other: Nontender to palpation Resp: Effort & Inspection: normal respiratory effort Auscultation: clear to auscultation bilaterally Cardio: Rate: regular rate Rhythm: regular rhythm Heart sounds: no murmurs GI: GI Palp: Yes Soft to palpation, Yes Tenderness to palpation present (GI) (Right lower quadrant), No Guarding due to palpation present (GI), No Rigid due to palpation, No Hernia present, No Palpable mass present and No Rebound tenderness present Back/Spine/Pelvis: Back: no CVA tenderness Skin: General skin exam: normal color Rashes: no rashes Wounds: no wounds Neuro: Other: Grossly intact and nonfocal Extrem: General: normal to inspection and no clubbing, cyanosis or edema O ther: Feeling equally moving all extremities well without deficit Psych: Mental Status: mental status grossly normal Affect: normal affect Course Course Emergency Course: Differential diagnoses including but not limited to: Acute abdomen, diverticulitis, enteritis, urinary tract infection, ureterolithiasis Patient's vital signs are reviewed and are normal Workup initiated with labs and imaging. Patient medicated for pain. All workup including labs and imaging are unremarkable for cause of patient's symptoms. He is now pain-free. Discussed the findings with the patient at the bedside and he is comfortable with discharge home at this time with prescription for Bentyl for abdominal cramping. Patient advised to watch for any new symptoms and return to the emergency room should he have any acute worsening or follow up with primary care provider. Discharge at this time stable condition. Vital Signs Vital signs: Vital Signs Temperature 98.1 F 01/19/25 10:08 Pulse Rate 79 01/19/25 10:08 Respiratory Rate 16 01/19/25 10:08 Blood Pressure 118/82 01/19/25 10:08 Pulse Oximetry 99 01/19/25 10:08 Oxygen Delivery Room Air 01/19/25 10:08 Temperature 98.1 F 01/19/25 10:08 Pulse Rate 79 01/19/25 10:08 Respiratory Rate 16 01/19/25 10:08 Blood Pressure 118/82 01/19/25 10:12 Pulse Oximetry 100 01/19/25 10:45 Oxygen Delivery Room Air 01/19/25 10:08 MDM - Abdominal Pain MDM Narrative Medical decision making narrative: See ED course Lab Data 01/19/25 10:25 01/19/25 10:25 Labs: Lab Results 01/19/25 Range/Units 10:25 WBC 4.7 (4.5-10.0) K/mm3 RBC 5.46 (4.6-6.20) M/mm3 Hgb 14.7 (14.0-18.0) g/dL Hct 45.9 (42.0-52.0) % MCV 84.1 (80-100) fl MCH 26.9 (26-34) pg MCHC 32.0 (32-36) g/dl RDW 13.7 (11.5-14.5) % Plt Count 244 (150-375) k/mm3 MPV 11.6 H (7.4-10.4) fl Immature Gran % (Auto) 0.4 (0-0.5) % Neut % (Auto) 63.7 (45.5-73.1) % Lymph % (Auto) 27.8 (18.3-44.2) % Cross % (Auto) 5.7 (2.6-8.5) % Eos % (Auto) 1.3 (0-4.4) % Baso % (Auto) 1.1 (0.2-1.2) % Lymph # (Auto) 1.31 (0.9-3.2) K/mm3 Cross # (Auto) 0.3 (0.1-0.6) K/mm3 Eos # (Auto) 0.1 (0-0.3) K/mm3 Baso # (Auto) 0.1 (0.0-0.1) K/mm3 Abs Immat Gran (auto) 0.02 (0.00-0.031) K/mm3 Absolute Neuts (auto) 3.0 (1.3-6.7) K/mm3 Absolute Nucleated RBC 0.000 (0.0-0.012) K/mm3 Nucleated RBC % 0.0 (0.0-0.2) % Sodium 140 (137-145) mmol/L Potassium 4.1 (3.4-5.0) mmol/L Chloride 102 (98-107) mmol/L Carbon Dioxide 25 (22-30) mmol/L Anion Gap 13 H (4-12) mmol/L BUN 12 (9-20) mg/dL Creatinine 0.89 (0.7-1.3) mg/dL Estim Creat Clear Calc 93 ml/min Estimated GFR > 60 (59 - ) Glucose 111 H (65-110) mg/dL Calcium 9.6 (8.4-10.2) mg/dL Total Bilirubin 0.6 (0.2-1.3) mg/dL AST 46 (17-59) U/L ALT 59 H (6-50) U/L Alkaline Phosphatase 127 H (38-126) U/L Total Protein 9.2 H (6.3-8.2) g/dL Albumin 5.3 H (3.5-5.1) g/dL Lipase 128 (23-300) U/L Urine Color Yellow (Yellow) Urine Appearance Clear (Clear) Urine pH 6.5 (5.0-9.0) Ur Specific [place] 1.003 (1.001-1.035) Urine Protein Negative (Negative) mg/dL Urine Glucose (UA) Negative (Negative) mg/dL Urine Ketones Negative (Negative) mg/dL Ur Blood (Man) Negative (Negative) Urine Nitrate Negative (Negative) Urine Bilirubin Negative (Negative) Urine Urobilinogen 0.2 (<2.0) mg/dL Leukocyte Esterase Rfl Negative (Negative) THOMAS/UL Imaging Data Radiologist's impression: ITS Impressions Abdomen/Pelvis CT 01/19/25 11:24 IMPRESSION: 1. No etiology for the patient's symptoms. Discharge Plan Discharge Clinical Impression: Abdominal pain Patient Disposition: Home Condition: Stable Instructions: Abdominal Pain (ED) Additional Instructions: Thank you for allowing us to evaluate you in the emergency room today. Your workup consisted of labs and imaging which are unremarkable. You are stable for discharge home at this time. Review prescribed medication to help with abdominal pain. Please take it as ordered. For the next several days please eat only bland foods and nothing hot, spicy or fried. Follow up with primary care provider within 1 week if any new or worsening symptoms return to the emergency room. Patient Language: Indonesian Prescriptions: New dicyclomine 10 mg capsule 10 mg PO QID PRN (Reason: abdominal pain) Qty: 30 0RF Follow-up/Referrals: Karan,Stanislaw Lind MD [Primary Care Provider, Unknown] - 1 Week Time of Disposition: 11:53
[2025-01-19] MEDS: MORPHINE SULFATE (*CRX) 4 MG/ML INJ IV PUSH (10:51)
--- OUTSIDE RECORDS SUMMARY | 2025-01-19 11:18 | XMS_ITS | Clinical Summary ---
Author Organization [place] [id number] [facility] Address [address] [place] [address] Care Team Providers Care Through Operator Name Role Phone Stanislaw Russo MD Primary Care Provi prem Allergies Active Allergy Reactions Criticality Noted Date Comments Penicillin Rash Medium 10/01/2024 Medications risperiDONE (RisperDAL) 0.5 mg tablet Take 1 tablet (0.5 mg total) by mouth nightly at bedtime. 09/23/2024 Active loratadine (CLARITIN) 10 mg tablet Take 1 tablet (10 mg total) by mouth daily Active Active Problems Problem Noted Date Diagnosed Date Routine adult health maintenance 11/12/2024 Assessment & Plan (11/12/2024 2:18 PM CDT): He is up-to-date on age-appropriate routine health maintenance. All questions answered. Vitals look great. Plan check up again in a year. I did recommend that we do a screening lipid panel for his age and he will get that done at [facility]. Follow up based on findings. Generalized anxiety disorder 11/12/2024 Assessment & Plan (11/12/2024 2:18 PM CDT): Testicular pain, right 11/12/2024 Assessment & Plan (11/12/2024 2:18 PM CDT): Orders: US Scrotum; Future Major depression, recurrent 07/22/2022 Mixed obsessional thoughts and acts 07/22/2022 Depression 07/21/2022 Resolved Problems Problem Noted Date Diagnosed Date Resolved Date Acute appendicitis 11/12/2024 Finger pain 11/12/2024 11/12/2024 Subungual hematoma of finger of right hand 11/12/2024 11/12/2024 Encounters Date Type Department Care Team Description 11/20/2024 Results Follow-Up [facility] Primary Care at [address] [address] Stanislaw Russo MD US Scrotum W Complete Doppler (C) 11/12/2024 2:00 PM CDT Office Visit [facility] Primary Care at [address] [address] Stanislaw Russo MD Routine adult health maintenance (Primary Dx); Generalized anxiety disorder; Testicular pain, right; Screening for hyperlipidemia from Last 3 Months Immunizations Immunization Administration Dates Next Due Influenza, Unspecified 01/03/2024(Deferred: Yoli ent Refused) Tdap 12/28/2023,05/20/2017 Social History Tobacco Use Types Packs/Day Years Used Date Smoking Tobacco: Never Passive Smoke Exposure: Never Smokeless Tobacco: Never Tobacco Cessation:Counseling Given: Not Answered PHQ-2 Answer Date Recorded PHQ-2 Total Score (If total score is 3 or more points, staff should administer the PHQ-9) 0 11/12/2024 PHQ-9 Answer Date Recorded PHQ-9 Total Score 0 11/12/2024 Sex and Gender Information Value Date Recorded Sex Assigned at Not on file Legal Sex Male 10:51 AM CDT Gender Identity Not on file Sexual Orientation Not on file Obstetrics History Last Filed Vital Signs Vital Sign Reading Time Taken Comments Blood Pressure 110/72 11/12/2024 1:53 PM CDT Pulse 80 11/12/2024 1:53 PM CDT Temperature 36.3 C (97.4 F) 11/12/2024 1:53 PM CDT Respiratory Rate 18 11/12/2024 1:53 PM CDT Oxygen Saturation 98% 11/12/2024 1:53 PM CDT Inhaled Oxygen Concentration - - Weight 66 kg (145 lb 8 oz) 11/12/2024 1:53 PM CD T Height 170.2 cm (5' 7.01) 11/12/2024 1:53 PM CD T Body Mass Index 22.78 11/12/2024 1:53 PM CDT Plan of Treatment Health Maintenance Due Date Last Done Comments Varicella Vaccines (1 of 2 - 13+ 2-dose series) 2000 HPV Vaccines (1 - 3-dose SCDM series) 2014 Influenza Vaccine (#1) 2024 Depression Screening 11/12/2025 11/12/2024, 11/12/2024 Regular Well Visit/Exam 18-64 11/12/2025 11/12/2024, 11/12/2024 DTaP/Tdap/Td Vaccine (3 - Td or Tdap) 12/27/2033 12/28/2023, 05/20/2017 Hepatitis B Screening Discontinued Hepatitis C Screening Discontinued Pneumococcal vaccine <65 Aged Out No longer eligible based on patient's age to complete this topic Procedures Procedure Name Priority Date/Time Associated Diagnosis Comments US SCROTUM W COMPLETE DOPPLER (C) Schedule Routine, Read Routine (OP Routine) 11/19/2024 from Last 3 Months Results * US Scrotum W Complete Doppler (C) (11/19/2024) Anatomical Region Laterality Modality Testis N/A Ultrasound 11/19/2024 us Historical Provider MD SYKES US PROCEDURES Final R esult from Last 3 Months Insurance [facility] MEDICARE ADVANTAGE Care Teams Through Operator Relationship Specialty Start Date End Date Stanislaw Russo MD [address] [facility] [address] [place] [address] PCP - General Family Practice 11/12/24
--- OUTSIDE RECORDS SUMMARY | 2025-01-19 11:18 | XMS_ITS | Encounter Summary ---
Author Organization [facility] Address [address] [place] [id number] Care Team Providers Care Manager Special Events Name Role Phone Stanislaw Russo MD Primary Care Provi prem Encounter Details Date Type Department Care Team (Late st Contact Info) Description 11/20/2024 Results Follow-Up [facility] Primary Care at [address] [place] [address] Stanislaw Russo MD [address] [place] [address] US Scrotum W Complete Doppler (C) Social History Tobacco Use Types Packs/Day Years Used Date Smoking Tobacco: Never Passive Smoke Exposure: Never Smokeless Tobacco: Never PHQ-2 Answer Date Recorded PHQ-2 Total Score (If total score is 3 or more points, staff should administer the PHQ-9) 0 11/12/2024 PHQ-9 Answer Date Recorded PHQ-9 Total Score 0 11/12/2024 Sex and Gender Information Value Date Recorded Sex Assigned at Not on file Legal Sex Male 10:51 AM CDT Gender Identity Not on file Sexual Orientation Not on file documented as of this encounter Plan of Treatment Not on file documented as of this encounter Visit Diagnoses Not on filedocumented in this encounter Care Teams Manager Special Events Relationship Specialty Start Date End Date Stanislaw Russo MD [address] [place] [address] PCP - General Family Practice 11/12/24 documented as of this encounter
--- OUTSIDE RECORDS SUMMARY | 2025-01-19 12:15 | XMS_ITS | Encounter Summary ---
Author Organization [facility] Healthcare Address [address] [place] [address] Care Team Providers Care Joinery Machinist Name Role Phone Stanislaw Russo MD Primary Care Provi prem Encounter Details Date Type Department Care Team (Late st Contact Info) Description 11/20/2024 Results Follow-Up [facility] Primary Care at [address] [place] [address] Stanislaw Russo MD [address] [place] [address] US Scrotum W Complete Doppler [...] on filedocumented in this encounter Care Teams Joinery Machinist Relationship Specialty Start Date End Date Stanislaw Russo MD [address] [place] [address] PCP - General Family Practice 11/12/24 documented as of this encounter
--- OUTSIDE RECORDS SUMMARY | 2025-01-19 12:15 | XMS_ITS | Clinical Summary ---
Author Organization [place] [id number] [facility] Address [address] [place] [address] Care Team Providers Care Sliver Lap Tender Name Role Phone Stanislaw Russo MD Primary [...] and he will get that done at [facility]. Follow up based on findings. Generalized [...] Department Care Team Description 11/20/2024 Results Follow-Up [facility] Primary Care at [address] [address] Stanislaw Russo MD US Scrotum W Complete Doppler (C) 11/12/2024 2:00 PM CDT Office Visit [facility] Primary Care at [address] [address] Stanislaw Russo MD Routine adult [...] R esult from Last 3 Months Insurance [facility] [place] [address] Care Teams Sliver Lap Tender Relationship Specialty Start Date End Date Stanislaw Russo MD [address] [facility] [address] [place] [address] PCP - General Family Practice 11/12/24
== END 2025-01-19 12:54 | disposition home or self-care (01) ==
PROVIDERS: General Practice; Emergency Provider Nurse Practitioner Adult Health; PCP Family Medicine
DX: R10.31 Right lower quadrant pain (principal)
CPT/HCPCS: 36415; 74177; 80053; 81003; 83690; 85025; 96361; 96374; 96375; 99284; J2270; J2405; J7040; Q9967